=== PATIENT | male | born 1995 ===

== ENCOUNTER → 2018-02-11 23:36 | Outpatient (REF) | payer OTHER, SELFPAY ==
[2018-02-12 01:35] LABS: Urine Chlamydia NOT DETECTED
[2018-02-12 12:16] LABS: Urine N gonorrhoeae DETECTED
[2018-02-13 14:22] LABS: RPR Screen Nonreactive (Nonreactive)
[2018-02-13 19:06] LABS: HIV Ag/Ab, 4th Gen Nonreactive (Nonreactive)
== END ==
LOC: LAB 23:36
PROVIDERS: Visit Provider Naturopath
DX: Z11.3 Encounter for screening for infections with a predominantly sexual mode of transmission (principal); A54.9 Gonococcal infection, unspecified
CPT/HCPCS: 86592; 86703; 87491; 87591

== ENCOUNTER → 2018-07-01 21:24 | Outpatient (REF) | payer OTHER, SELFPAY ==
[2018-07-02 00:39] LABS: Hepatitis B Surface Antigen NEGATIVE s/c (NEGATIVE)
[2018-07-02 00:52] LABS: Urine N gonorrhoeae NOT DETECTED
[2018-07-02 01:04] LABS: Hep C Virus Ab w/Reflex Quant NEGATIVE s/c (NEGATIVE)
[2018-07-02 01:35] LABS: Urine Chlamydia NOT DETECTED
[2018-07-03 14:03] LABS: RPR Screen Nonreactive (Nonreactive)
[2018-07-03 15:55] LABS: HIV Ag/Ab, 4th Gen Nonreactive (Nonreactive); Hepatitis B Core Antibody Nonreactive (Nonreactive)
[2018-07-04 09:08] LABS: Hepatitis B Surf AB Imm QUANT 6 mIU/mL (> 9)
== END ==
LOC: LAB 21:24
PROVIDERS: Visit Provider Naturopath
DX: Z11.3 Encounter for screening for infections with a predominantly sexual mode of transmission (principal)
CPT/HCPCS: 36415; 86317; 86592; 86703; 86704; 86803; 87340; 87491; 87591